=== PATIENT | female | born 1965 | race Caucasian/White ===

== ENCOUNTER 2022-09-24 | Outpatient (REF) | payer OTHER, SELFPAY | END 2022-09-24 00:01 | disposition home or self-care (01) | LOC: HO.LNP | PROVIDERS: Visit Provider Physician Assistant | DX: J02.8 Acute pharyngitis due to other specified organisms (principal) | CPT/HCPCS: 87070 ==

== ENCOUNTER 2024-09-02 08:03 | Outpatient (REF) | payer OTHER, SELFPAY ==
--- NOTE | ~2024-09-02 | MM_ITS ---
EXAMINATION: DXA BONE DENSITY AXIAL HISTORY: Estrogen deficiency TECHNIQUE: [email or web address] Dual energy absorptiometry (DEXA) of the lumbar spine, total left hip, and femoral neck was performed. COMPARISON: There are no prior studies for comparison. FINDINGS: The bone mineral density of the lumbar spine is 1.200 with a T-score of 0.2, and a Z-score of 0.2. The bone mineral density of the left total hip is 0.826 with a T-score of -1.4, and a Z-score of -1.3. The bone mineral density of the left femoral neck is 0.781 with a T-score of -1.8, and a Z-score of -1.4. FRACTURE RISK: The FRAX index suggests a risk of major osteoporotic fracture of 8.1%, and of hip fracture 0.9%. MM/XR DEXA axial skeleton IMPRESSION: Based on bone mineral density, and according to World Health Organization (WHO) criteria, the diagnosis is consistent with osteopenia. All bone density values are in grams per centimeter squared (g/cm2). Statistically, 68% of repeat scans fall within 1 SD (+/- 0.010 g/cm2 for AP spine L1-L4) and 1 SD (+/- 0.012 g/cm2 for femur total) FRAX is a trademark of the [employer] [place] [employer] Metabolic [employer] Disease, a World Health Organization (WHO) Collaborating Center. Electronically signed by: Neeraj Calles MD 09/02/2024 09:33 AM EST
--- OUTSIDE RECORDS SUMMARY | 2024-09-02 08:05 | XMS_ITS | Continuity of Care Document ---
Author Organization [facility] [place] ter Address [address] [place] [address] Phone Care Team Providers Care Agile Scrum Coach Name Role Phone Casimiro Callaway MD Unavailable Unavailable Allergies, Adverse Reactions, Alerts Substance Reaction Status Criticality OXYCODONE HCL Active No Information acetaminophen Active No Information HYDROCODONE BITARTRATE Active No In formation acetaminophen Active No Information HYDROMORPHONE HCL Active No Informa tion codeine Active No Information WARNIN allergy(ies) could not be collected because the type is not supported. Please contact the source practice for further details. Problems Condition Type Effective Dates (start - stop) Clini eva Status Comments No Known Problems Procedures Procedure Date New Pt Complete Advance Directives Directive Yes / No Effective Date File Name No Information Encounters Encounter Description Practice Location Reason(s) For Visit Diagnoses Date Provider Providers Copied [facility] [place], [id number], tel:[phone] [place] pain (chief complaint) Age-related nuclear cataract, bilateralDry eye syndrome of bilateral lacrimal glands Wilfred Kirkpatrick. [address] [place] [address], [id number], [place]. tel:[phone] Referring Provider: Casimiro Callaway, [address] [place] [address], [id number] . tel:[phone] [facility], [address] , [place], [place], [id number], [place] tel:[phone] [place] Myopia, bilateral Mar-0 2-201 8 No Information Family History Family Member Type Diagnosis Age At Onset No Information Payers Payer name Insurance type Covered democrat ID Authorjuancarlosa tibuck(s) [facility] [id number] Social History Type Description Quantity Date Captured Comments Alcohol Use Details No Caffeine Use Details coffee Tobacco Use Status Current non-smoker 20 Smoking Status Never smoker Non-Smoking Tobacco Use Details : No Details Available : No Details Available Sex Female Chief Complaint And Reason For Visit From encounter dated '02/16/2020 09:00'. pain (chief complaint) Reason For Referral Reason For Referral No Information History Of Present Illness Encounter Date Complaint History Of Prese nt Illness pain The 54 year old female presents for evaluation of pain in the right eye. It started about 3 day(s) ago. The symptom is occasional. The condition is described as aching. PT vision stable, Blood pressure 124/82, no drops Functional Status Date Functional Assessmen t No Information Instructions Date Instruction Additional Infor jasmin Impression/Plan - Di scussed diagnosis in detail with patient. Will continue to observe condition and or symptoms. Patient instructed to use artificial tears as needed. Patient instructed to apply warm compresses. Related to Dry eye syndrome of bilateral lacrimal glands Impression/Plan - Di scussed diagnosis in detail with patient. Will continue to observe condition and or symptoms. Patient instructed to call if condition gets worse. Call if [facility] worsens. No treatment is required at this time. Related to Age-related nuclear cataract, bilateral Follow up - OCT- PACHY- REF DFE Assessments Type Assessment Date assessment Age-related nuclear cataract, bi lateral impression Age-related nuclear cataract, bi lateral: H25.13 assessment Dry eye syndrome of bilateral la crimal glands impression Dry eye syndrome of bilateral la crimal glands: H04.123 Charlie-29-2020 Patient Care Teams Name Effective Dates (start - stop) Status Members No Information
--- OUTSIDE RECORDS SUMMARY | 2024-09-02 08:05 | XMS_ITS | Data Portability ---
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 MODERATE MUST MEET 2 OUT OF 3 ELEMENTS: PROBLEMS, DATA OR RISK ELEMENT 1: PROBLEMS ADDRESSED 1 OR MORE CHRONIC ILLNESS WITH EXACERBATION OR 2 OR MORE STABLE CHRONIC ILLNESSES OR 1 UNDIAGNOSED NEW PROBLEM OR 1 ACUTE ILLNESS W/SYMPTOMS OR 1 ACUTE COMPLICATED INJURY ELEMENT 2: DATA MUST MEET 1 OF 3 CATEGORIES CATEGORY 1: REVIEW OF PRIOR EXTERNAL NOTES, REVIEW OF RESULTS, ORDERING OF EACH TEST, ASSESSMENT REQUIRING INDEPENDENT HISTORIAN OR CATEGORY 2: INDEPENDENT INTERPRETATION OF TESTS BY ANOTHER PHYSICIAN OR SPECIALIST OR CATEGORY 3: DISCUSSION OF MGT OR TEST INTERPRETATION W/EXTERNAL PHYSICIAN OR SPECIALIST ELEMENT 3: RISK RISK OF COMPLICATIONS AND/OR MORBIDITY OR MORTALITY OF PATIENT MANAGEMENT PROVIDER MUST THOROUGHLY DOCUMENT EACH ELEMENT THAT IS COVERED Not available 01/10/2023 16:39:37 09/22/2023 09/22/2023 [id number] [place] [id number] (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 MUST MEET 2 OUT OF 3 ELEMENTS: PROBLEMS, DATA OR RISK ELEMENT 1: PROBLEMS ADDRESSED 1 OR MORE CHRONIC ILLNESS WITH EXACERBATION OR 2 OR MORE STABLE CHRONIC ILLNESSES OR 1 UNDIAGNOSED NEW PROBLEM OR 1 ACUTE ILLNESS W/SYMPTOMS OR 1 ACUTE COMPLICATED INJURY ELEMENT 2: DATA MUST MEET 1 OF 3 CATEGORIES CATEGORY 1: REVIEW OF PRIOR EXTERNAL NOTES, REVIEW OF RESULTS, ORDERING OF EACH TEST, ASSESSMENT REQUIRING INDEPENDENT HISTORIAN OR CATEGORY 2: INDEPENDENT INTERPRETATION OF TESTS BY ANOTHER PHYSICIAN OR SPECIALIST OR CATEGORY 3: DISCUSSION OF MGT OR TEST INTERPRETATION W/EXTERNAL PHYSICIAN OR SPECIALIST ELEMENT 3: RISK RISK OF COMPLICATIONS AND/OR MORBIDITY OR MORTALITY OF PATIENT MANAGEMENT PROVIDER MUST THOROUGHLY DOCUMENT EACH ELEMENT THAT IS COVERED Not available 09/22/2023 16:40:41 03/03/2024 03/03/2024 [id number] [place] [id number] (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 MUST MEET 2 OUT OF 3 ELEMENTS: PROBLEMS, DATA OR RISK ELEMENT 1: PROBLEMS ADDRESSED 1 OR MORE CHRONIC ILLNESS WITH EXACERBATION OR 2 OR MORE STABLE CHRONIC ILLNESSES OR 1 UNDIAGNOSED NEW PROBLEM OR 1 ACUTE ILLNESS W/SYMPTOMS OR 1 ACUTE COMPLICATED INJURY ELEMENT 2: DATA MUST MEET 1 OF 3 CATEGORIES CATEGORY 1: REVIEW OF PRIOR EXTERNAL NOTES, REVIEW OF RESULTS, ORDERING OF EACH TEST, ASSESSMENT REQUIRING INDEPENDENT HISTORIAN OR CATEGORY 2: INDEPENDENT INTERPRETATION OF TESTS BY ANOTHER PHYSICIAN OR SPECIALIST OR CATEGORY 3: DISCUSSION OF MGT OR TEST INTERPRETATION W/EXTERNAL PHYSICIAN OR SPECIALIST ELEMENT 3: RISK RISK OF COMPLICATIONS AND/OR MORBIDITY OR MORTALITY OF PATIENT MANAGEMENT PROVIDER MUST THOROUGHLY DOCUMENT EACH ELEMENT THAT IS COVERED Not available 03/03/2024 11:51:19 Plan of Treatment Reminders Order Date Submit Date Provider Last Modified By Organization Details Last Modified Time Details Appointments ANNUAL EXAM 2024 12:00P M DR TORRES Not available Not available Not available Lab CMP, serum or plasma 2022 024 [facility] ([facility]), [address] [place] [address], [id number], 09/05/2023 16:27:20 lipid panel, blood 2022 024 [facility] ([facility]patient), [address] [place] [address], [id number], 08/23/2023 14:05:31 iron + TIBC + ferritin, serum 2023 024 [facility] (Outpatient), [address] [place] [address], [id number], 08/20/2023 16:31:05 vitamin B12 + folate, serum or blood 2023 024 [facility]), [address] [place] [address], [address], 08/23/2023 14:10:49 vitamin D, 25-hydrox y, total, serum 2023 024 [facility] (Outpatient), [address] [place], [address], 08/20/2023 16:31:05 CBC 2023 024 [facility] ([facility]), [address] [place], [address], 09/05/2023 15:52:48 TSH + free T4, serum 2023 024 [facility] [address] [place] [address], [id number], 08/23/2023 14:00:13 H pylori igm+igg+i ga Ab, serum 2022 023 [facility], [address] [place] [address], [address], 11/20/2022 15:05:22 Referral gastroent erologist referral 2023 024 joseph Cabral MD, [address] [place] [address], [address], 08/25/2023 08:56:29 orthopedi c surgeon referral 2022 023 joseph Klein MD, [address] [place] [address], [address], 01/17/2023 08:15:45 orthopedi c physical therapist referral 2022 023 joseph [facility], [address] [place] [address], [address], 01/20/2023 08:11:28 Procedures None recorded. Surgeries None recorded. Imaging NM, hepatobil iary scan, w/ CCK - chronic RUQ abdominal pain with neg US/CT/col onoscopy 2023 024 [email or web address] Not available 03/05/2024 08:53:33 MAMMO, screening , digital, bilateral 2023 024 hrubner Not available 09/03/2023 10:07:23 electroca rdiogram, routine ECG, 12 leads min 2022 023 LUZ MARIA Not available 11/21/2022 12:43:53 RF, upper gastroint estinal tract, w/ contrast PO 2022 023 hrubner Not available 11/27/2022 08:22:54 Medication Orders amoxicill in 875 mg-potass ium clavulana te 125 mg tablet 2023 024 LUZ MARIA [facility], [address] [place], [address], 03/03/2024 11:29:24 famotidin e 40 mg tablet 2022 023 [facility], [address] [place], [address], 01/10/2023 15:46:56 Patient TargetsNo targets recorded. Patient Instructions Encounter Date Encounter Id Patient Instructions Last Modified By Organization Details Last Modified Time 01/10/2023 [id number] gastroesophageal reflux disease (GERD): care instructions Not available 01/10/2023 16:41:28 08/20/2023 [id number] gastroesophageal reflux disease (GERD): care instructions Not available 08/20/2023 16:29:36 09/22/2023 [id number] abdominal pain: care instructions Not available 09/22/2023 16:41:38 Reason for Referral Orthopedic Surgeon Referral for Nontraumatic complete rupture of rotator cuff of right shoulder Referring Physician: Ced Torres, Internal Medicine, Encounter Date: 01/10/2023 Referring Physician: Ced chun, Internal Medicine, Encounter Date: 01/10/2023 [employer] 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 [email or web address] Not Available 11/22 09:50:47 12/21/19 23 12/19/2022 XR, shoul deisy, 2 or more view No observ ation record ed. [facility] [address], [place], [address], 12/20/2022 09:20:53 01/05/20 23 01/03/2023 MRI, shoul deisy, w/o contr ast No observ ation record ed. [facility] [address] [place] [address] , [place] Ortiz, [address], 01/06/2023 09:14:53 01/09/20 23 01/08/2023 RF, upper gastr ointe miesha l tract , w/ contr ast PO No observ ation record ed. [facility] [address] [place] [address], [address], 01/08/2023 15:33:56 03/12/20 23 03/12/2023 XR, chest , 2 view No observ ation record ed. [email or web address] [facility] [address] [facility] [address], [place], [address], 03/13/2023 15:44:32 10/29/19 24 10/28/2023 MAMMO , scree lance, digit al, bilat eral No observ ation record ed. [address], [place], [address], 10/29/2023 17:04:04 03/15/20 24 03/15/2024 NM, hepat obili yoko scan, w/ CCK No observ ation record ed. [address], [place], [address], 03/17/2024 12:08:09 03/24/20 24 03/15/2024 home sleep study No observ [facility]ion [facility] ed. [facility] [address] [facility], [place], [address], 03/26/2024 11:29:22 06/04/20 24 06/04/2024 MRI, abdom en, w/ contr ast No observ ation record ed. [facility] Not Available 2023 15:27:01 Result Notes None recorded. Problems Name Problem SNOMED Code Status Onset Date Resolution Date Notes Provider Name and Address Organization Details Recorded Time Hypertens judy disorder 48553106 Active 2020 Not Available [facility] 4 01:54:38 Anxiety 24532513 Active 2020 Not Available [facility] 4 01:54:38 Gastroeso phageal reflux disease 014530665 Active 2020 Not Available [facility] 4 01:54:38 History of Schatzkis ring 127235958281 54132 Active 2020 Not Available [facility] 4 01:54:38 Gastritis 2501219 Active 2021 Not Available [facility] 4 01:54:38 Nausea 959006506 Active 2021 Not Available [facility] 4 01:54:38 Right upper quadrant pain 297098750 Active 2021 Not Available [facility] 4 01:54:38 Impacted cerumen 14297532 Active 2022 Not Available [facility] 4 01:54:38 Sore throat 136831036 Active 2022 Not Available [facility] 4 01:54:38 Degenerat ion of lumbar intervert ebral disc 55952358 Active 2022 Not Available [facility] 4 01:54:38 Atypical chest pain 941946984 Active 2022 Not Available [facility] 4 01:54:38 Diarrhea 13882148 Active 2022 Not Available [facility] 4 01:54:38 Pain of right shoulder joint 959281557833 92338 Active 2022 Not Available [facility] 4 01:54:38 Calcific tendiniti s of right shoulder 375065793593 107 Active 2022 Not Available [facility] 4 01:54:38 Supraspin atus tear 831556099 Active 2022 Not Available [facility] 4 01:54:38 Nontrauma tic complete rupture of rotator cuff of right shoulder 067188457745 9100 Active 2022 Not Available [facility] 4 01:54:38 Cough 59966189 Active 2022 Not Available [facility] 4 01:54:38 Fatigue 49910493 Active 2023 Not Available [facility] 4 01:54:38 Daytime somnolenc e 153702958962 Active 2023 Not Available [facility] 4 01:54:38 Left lower quadrant pain 448635010 Active 2023 Ced Torres DO [address] [place] [address], [address], [facility] 4 16:40:57 Colitis 24502898 Active 2023 JEN SEARS [address] [place] [address], [address], [facility] 4 09:30:27 Sleep apnea 95731076 Active 2023 JEN SEARS [address] [place] [address], [address], [facility] 4 11:30:13 Alkaline phosphata se above reference range 311725044 Active 2023 Ced Torres DO [address] [place] [address], [address], [facility] 4 16:07:56 Hyperglyc emia 25793260 Active 2023 Ced Torres DO [address] [place] [address], [address], [facility] 4 16:08:48 Cholelith iasis without obstructi on 01298209 Active 2023 JEN SEARS [address] [place], [address], [facility] 14:01:36 Problem Notes None recorded. Procedures Surgical History Date Name Laterality Status Provider Name and Address Organization Details Recorded Time 10/12/19 Cerumen Removal completed JEN SEARS [address] [place], [address], [facility] 10/14/2022 11:27:13 05/21/20 Most [facility] 09:16:37 04/20/20 Date of Last Pap Smear completed [facility] 10/10/2020 09:16:23 07/21/19 Partial Hysterectomy completed [facility] 10/10/2020 09:15:57 Imaging Results Imaging Date Name Status LastModified by Organization Details LastModified Time 11/21/2022 electrocardiogram, routine ECG, 12 leads min completed [email or web address] Information not available 11/22/2022 09:50:47 12/19/2022 XR, shoulder, 2 or more view completed [facility] [address] [place], [address], 12/20/2022 09:20:53 01/03/2023 MRI, shoulder, w/o contrast completed [facility] [address] [place] [address] , [place], [address], 01/06/2023 09:14:53 01/08/2023 RF, upper gastrointestinal tract, w/ contrast PO completed [facility] [address], [place], [address], 01/08/2023 15:33:56 03/12/2023 XR, chest, 2 view completed [facility] [address], [place], [address], 03/13/2023 15:44:32 10/28/2023 MAMMO, screening, digital, bilateral completed [email or web address] [address], [address], 10/29/2023 17:04:04 03/15/2024 NM, hepatobiliary scan, w/ CCK completed [email or web address] [address], [address], 03/17/2024 12:08:09 03/15/2024 home sleep study completed [address], [address], 03/26/2024 11:29:22 06/04/2024 MRI, abdomen, w/ contrast completed [facility] Information not available 06/04/2024 15:27:01 Procedure Notes None recorded. Medical Equipment None Reported. Allergies Allergen ID Allergen Name Allergen Category Reaction Reaction Severity Criticality Documentation Date Start Date Code Code System Note Provider Name and Address Organization Details Recorded Time 4358 morphine medicatio n Not available Not available Not available 10/09/2020 7052 RxNorm Ced Torres, DO [address] [place], [address], [facility] 15:51:27 4359 Substance with sulfonami de structure and antibacte rial mechanism of action (substanc e) medicatio n Not available Not available Not available 10/09/2020 32248 8003 SNOMED Ced Torres, DO [address] [place], [address], [facility] 15:51:33 4360 acetamino phen / hydrocodo ne medicatio n Not available Not available Not available 10/09/2020 34309 2 RxNorm Ced Torres, DO [address] [place], [address], [facility] 15:51:56 4361 acetamino phen / oxycodone medicatio n Not available Not available Not available 10/09/2020 43998 3 RxNorm Ced Torres, DO [address] [place], [address], [facility] 1 15:52:06 4362 naproxen medicatio n Not available Not available Not available 10/09/2020 7258 RxNorm Ced Torres, DO [address] [place], [address], [facility] 1 15:52:14 4363 Soma medicatio n Not available Not available Not available 10/09/2020 38821 2 RxNorm Ced Torres, DO [address] [place], [address], [facility] 1 15:52:22 4364 hydrochlo rothiazid e medicatio n Not available Not available Not available 10/09/2020 5487 RxNorm Ced Torres, DO [address] [place], [address], [facility] 1 15:52:39 4365 Dilaudid medicatio n Not available Not available Not available 10/09/2020 30132 3 RxNorm Ced Torres, DO [address] [place], [address], [facility] 1 15:55:07 8258 Augmentin medicatio n Not available Not available Not available 03/03/2024 12837 2 RxNorm Clemente Wray null, [facility] 4 11:28:44 8259 Flagyl medicatio n Not available Not available Not available 03/03/202416832 6 RxNorm Clemente Maganain null, [facility] 4 11:28:52 8260 Cipro medicatio n Not available Not available Not available 03/03/202496288 3 RxNorm Clemente Wray null, [facility] 11:28:57 Medications Name Sig Start Date Stop Date Status Note LastModified by Organization Details LastModified Time clonidine HCl 0.1 mg tablet TAKE 1 TABLET BY MOUTH EVERY DAY NEEDED 2023 active Not Available Not Available Not Avai lable prednisone 10 mg tablet TAKE 4 TABLETS BY MOUTH DAILY FOR 3 DAYS, 3 TABS FOR 3 DAYS, 2 TABS FOR 3 DAYS, 1 TAB FOR 3 DAYS 11/20 completed Not Available Not Available Not Available doxycycline hyclate 100 mg capsule Take 1 capsule twice a day by oral route for 7 days. 06/04 completed Not Available Not Available Not Available azithromyci n 250 mg tablet TAKE 2 TABLETS BY MOUTH TODAY, THEN TAKE 1 TABLET DAILY FOR 4 DAYS DIRECTED active Not Available Not Available No t Available benzonatate 200 mg capsule TAKE 1 CAPSULE BY MOUTH THREE TIMES A DAY FOR 2 WEEKS active Not Available Not Available No t Available sucralfate 100 mg/mL oral suspension TAKE 10 ML (1 G TOTAL) BY MOUTH 4 (FOUR) TIMES A DAY WITH MEALS AND NIGHTLY. 11/20 completed Not Available Not Available Not Available sucralfate 1 gram tablet TAKE 1 TABLET BY MOUTH FOUR TIMES A DAY NEEDED 2023 active Not Available Not Available Not Avai lable ondansetron HCl 4 mg tablet TAKE 1 TABLET BY MOUTH EVERY 6 TO 8 HOURS NEEDED FOR NAUSEA DIRECTED 06/04 completed Not Available Not Available Not Available famotidine 40 mg tablet TAKE 1 TABLET BY MOUTH TWICE A DAY active Not Available Not Available No t Available metronidazo le 500 mg tablet TAKE 1 TABLET BY MOUTH THREE TIMES A DAY FOR 14 DAYS 03/03 completed Not Available Not Available Not Available ciprofloxac in 500 mg tablet TAKE 1 TABLET BY MOUTH TWICE A DAY FOR 14 DAYS 03/03 completed Not Available Not Available Not Available tramadol 50 mg tablet TAKE 1 TABLET BY MOUTH EVERY 6 HOURS NEEDED FOR 7 DAYS 01/10 completed Not Available Not Available Not Available ondansetron 8 mg disintegrat ing tablet PLACE 1 TABLET TWICE A DAY BY TRANSLING UAL ROUTE FOR 14 DAYS active Not Available Not Available No t Available ketorolac 10 mg tablet TAKE 1 TABLET BY MOUTH EVERY 6 HOURS NEEDED FOR PAIN active Not Available Not Available No t Available lorazepam 0.5 mg tablet TAKE 2 TABLETS BY MOUTH EVERY DAY NEEDED 2024 active Not Available Not Available Not Avai lable aspirin 325 mg tablet,lisandra yed release TAKE 1 TABLET BY MOUTH EVERY DAY FOR 28 DAYS STARTING POST OPERATIVE DAY 1 DIRECTED 06/04 completed Not Available Not Available Not Available pantoprazol e 40 mg tablet,lisandra yed release TAKE 1 TABLET BY MOUTH EVERY DAY active Not Available Not Available No t Available omeprazole 20 mg capsule,del ayed release Take 1 capsule twice a day by oral route. active OTC Not Available Not Available No t Available metoprolol succinate ER 25 mg tablet,exte nded release 24 hr TAKE 1 TABLET BY MOUTH EVERY DAY 2024 active Not Available Not Available Not Avai lable lorazepam 1 mg tablet TAKE 1 TABLET BY MOUTH EVERY DAY NEEDED FOR ANXIETY 09/21 completed Not Available Not Available Not Available methylpredn isolone 4 mg tablets in a dose pack TAKE 6 TABLETS ON DAY 1 DIRECTED ON PACKAGE AND DECREASE BY 1 TAB EACH DAY FOR A TOTAL OF 6 DAYS 09/21 completed Not Available Not Available Not Available albuterol sulfate HFA 90 mcg/actuati on aerosol inhaler INHALE 2 PUFFS INTO THE LUNGS EVERY 4 HOURS FOR 30 DAYS 09/21 completed Not Available Not Available Not Available ondansetron 4 mg disintegrat ing tablet TAKE 1 TABLET BY MOUTH EVERY 8 HOURS NEEDED FOR NAUSEA 03/03 completed Not Available Not Available Not Available fluticasone propionate 50 mcg/actuati on nasal spray,suspe nsion SPRAY 1 SPRAY IN EACH NOSTRIL TWICE A DAY active Not Available Not Available No t Available doxycycline hyclate 100 mg tablet Take 1 tablet twice a day by oral route for 10 days. 03/20 completed Not Available Not Available Not Available dicyclomine 10 mg capsule Take 1 capsule 3 times a day by oral route as needed for 14 days. 10/11 completed Not Available Not Available Not Available amoxicillin 875 mg-potassiu m clavulanate 125 mg tablet TAKE 1 TABLET BY MOUTH EVERY 12 HOURS FOR 10 DAYS 03/03 completed Not Available Not Available Not Available Vitamin D active Not Available Not Gisela ilable Not Available metoprolol succinate ER 25 mg capsule sprinkle, ext. release 24 hr Take 1 capsule every day by oral route. 06/04 completed Not Available Not Available Not Available COVID-19 test specimen collection USE 1 KIT TODAY DIRECTED 06/04 completed Not Available Not Available Not Available Vitals Date Recorded Body height Body mass index (BMI) Body weight Heart rate Oxygen saturation Oxygen saturation in Arterial blood by Pulse oximetry Systolic blood pressure Diastolic blood pressure Provider Name and Address Organization Details Last Updated DateTime 3 163.83 cm 36.6 kg/m2 11167.0 3 g 67 /min 98 % 98 % 118 mm[Hg] 70 mm[Hg] Keisha Bin [facility] 3 14:42:37 Date Recorded Body height Body mass index (BMI) Body weight Heart rate Oxygen saturation Oxygen saturation in Arterial blood by Pulse oximetry Systolic blood pressure Diastolic blood pressure Provider Name and Address Organization Details Last Updated DateTime 3 163.83 cm 37 kg/m2 97358.7 3 g 70 /min 95 % 95 % 142 mm[Hg] 80 mm[Hg] Ced Torres, DO [address] [place], [address], [facility] 3 15:47:43 Date Recorded Body height Body mass index (BMI) Body weight Heart rate Oxygen saturation Oxygen saturation in Arterial blood by Pulse oximetry Systolic blood pressure Diastolic blood pressure Provider Name and Address Organization Details Last Updated DateTime 4 163.83 cm 38 kg/m2 459534. 28 g 78 /min 97 % 97 % 130 mm[Hg] 78 mm[Hg] Lauren Leahy [facility] 4 15:55:38 Date Recorded Body height Body mass index (BMI) Body weight Heart rate Oxygen saturation Oxygen saturation in Arterial blood by Pulse oximetry Systolic blood pressure Diastolic blood pressure Provider Name and Address Organization Details Last Updated DateTime 4 163.83 cm 38.1 kg/m2 028331. 08 g 69 /min 99 % 99 % 122 mm[Hg] 88 mm[Hg] Ced Torres, DO [address] [place], [address], [facility] 4 16:05:32 Date Recorded Body height Body mass index (BMI) Body weight Heart rate Oxygen saturation Oxygen saturation in Arterial blood by Pulse oximetry Systolic blood pressure Diastolic blood pressure Provider Name and Address Organization Details Last Updated DateTime 4 163.83 cm 37.2 kg/m2 84644.3 2 g 72 /min 99 % 99 % 128 mm[Hg] 74 mm[Hg] Clemente Kamala [facility] 4 11:32:04 Social History Question Answer Notes LastModified by Index Details LastModified Time Tobacco Smoking Status Never Smoker Ced Torres, DO [address] [place], [address], [facility] 10/09/2020 15:51:09 What Is Your Level Of Alcohol Consumption? None Information not available 10/10/2020 What Is Your Level Of Caffeine Consumption? Occasional Information not available 10/10/2020 What Was The Date Of Your Most Recent Tobacco Screening? 03/03/2024 [email or web address] Information not available 03/03/2024 Do You Or Have You Ever Used Any Other Forms Of Tobacco Or Nicotine? No Information not available 01/10/2023 Sex: Unknown Functional Status Question Answer Note LastModified by Index Details LastModified Time What is your exercise level? Occasional Information not available 10/10/2020 Mental Status None recorded. Family History Relationship Description Onset Age of this Age Resolved Age Notes LastModified by Organization Details LastModified Time Maternal Grandmother Arthritis tbalicki Not available 09:12:47 Maternal Grandfather Arthritis tbalicki Not available 09:12:47 Paternal Grandmother Arthritis tbalicki Not available 09:12:47 Paternal Grandfather Arthritis tbalicki Not available 09:12:47 Paternal Grandfather Heart disease tbalicki Not available 2020 09:13:50 Paternal Grandfather Hypertensive disorder tbalicki Not available 2020 09:14:57 Father Arthritis tbalicki Not availabl e 10/10/2020 09:12:58 Father Alcoholism [email or web address] Not gisela ilable 10/11/2022 16:12:01 Mother Arthritis tbalicki Not availabl e 10/10/2020 09:13:16 Medical History No medical history recorded. Gynecological History Statement/Question Response Date of Last Pap Smear 04/20/2000 Most Recent Mammogram 05/21/2020 Date of LMP Obstetrics History GPAL:G 0 P 0 0 0 0 Immunizations Vaccine Type Date Status Note Provider Nam e and Address Organization Details Recorded Time COVID-19, mRNA, LNP-S, PF, 30 mcg/0.3 mL dose 10/21/2020 completed Not Available [facility] 4 01:54:38 COVID-19, mRNA, LNP-S, PF, 30 mcg/0.3 mL dose 11/13/2020 completed Not Available [facility] 4 01:54:38 Tdap 02/05/2012 completed Not Available Formerly [facility] 09/06/2023 01:54:39 COVID-19, mRNA, LNP-S, PF, 30 mcg/0.3 mL dose 06/12/2021 completed Not Available Formerly [facility] 4 01:54:39 COVID-19, mRNA, LNP-S, PF, 30 mcg/0.3 mL dose 11/28/2021 completed Not Available [facility] 4 01:54:38 Past Encounters Encounter ID Performer Location Encounter Start Date Encounter Closed Date Diagnosis/Indication Diagnosis SNOMED-CT Code Diagnosis ICD10 Code Diagnosis Note [id number] Ced Torres DO [facility] [address],[place] [address] 10/09/2020 15:40:59 10/09/2020 16:23:31 Hypertensive disorder 05406618 I10 seems to be under control with the metoprolol 25 ER and will remain had lab including cholest and a1c etc also good Gastroesop hageal reflux disease 211107706 K21.00 no evid of barretts esoph on pantoprazo le Acute tear of medial meniscus of left knee [id number] 7134977 S83.242A will need referral [id number] JEN SEARS [facility] [address],[place] [address] 03/02/2021 09:08:14 03/02/2021 10:52:17 Diarrhea 79439880 R19.7 will fu with work note and instructio ns until results come instay hydrated, drink fluids with electrolyt es and start on probiotic Clostridiu m difficile colitis 079559883 A04.72 needs to be tested for C. Diffwill set up at [facility] per patient request [id number] JEN SEARS [facility] [address] [facility] [address] [place] [address] 03/20/2021 15:43:45 03/20/2021 17:05:47 Diarrhea 86270200 R19.7 will set up with GI referral and trial and anti-spasm odic for relief [id number] JEN SEARS [facility] [address],[place] [address] 04/18/2021 09:20:07 04/18/2021 11:40:17 Low back pain 025191815 M54.5 will start on predadvise d not to use both pred and NSAIDs together as it may cause a gastritisc an use APAP or OTC topical gels or icy hot pad Degenerati on of lumbar intervertebral disc 13911830 M51.36 flare up to overuse injury [id number] JEN SEARS [facility] [address],[place] [address] 07/30/2021 09:27:07 07/30/2021 16:07:28 Acute bronchitis 58115388 J20.8 will fu with patient again this week to discuss symptoms [id number] JEN SEARS [facility] [address] [facility] [address] [place] [address] 05/06/2022 11:53:19 05/07/2022 10:46:30 Gastritis 2886331 K29.60 will start on sucralfate History of Schatzkis ring [id number] 7645276 Z87.19 set up with new GI Gastroesop hageal reflux disease 544326403 K21.9 adjusted meds [id number] Ced Torres DO [facility] [address],[place] [address] 06/04/2022 10:04:34 06/04/2022 14:15:57 Active or passive immunization 611424297 Z23 patient advised she is due for flu shot & tdap Adult heal th examination 315177236 Z00.01 MAMMO UTD, GET S IN AUG COLONOSCOP Y GOOD IN 2019 Screening for malignant neoplasm of colon 953593513 Z12.11 HAS HAD ONE ALREADY 2020 CLEAN AND NO POLYPS DOES HAVE SOME DIVERTIC [id number] JEN SEARS [facility] [address],[place] [address] 09/24/2022 14:46:43 09/25/2022 08:49:27 Impacted cerumen 25415834 H61.23 will set up with lavage on Friday Sore throat 965758230 J0 2.8 will set up with standard rapid strep and send out strep test [id number] JEN SEARS [facility] [address],[place] [address] 10/11/2022 16:11:24 10/11/2022 17:02:51 Impacted cerumen 94058878 H61.23 resolved [id number] JEN SEARS [facility] [address],[place] [address] 11/20/2022 14:36:55 11/20/2022 16:25:40 Gastritis 4775727 K29.60 go up to 40 mg of the omeprazole will continue sucralfate 1 G tablet scheduled sucralfate 1 G TIDfamotid ine PRNomepraz ole 40 mg agreed to Upper GI series Atypical chest pain 1025 99190 R07.89 agreed to EKG, low suspicion Diarrhea 70193158 A07.8 not watery, mild [id number] Ced oTrres DO [facility] [address], [place] [address] 01/10/2023 15:24:20 01/10/2023 17:09:23 Nontraumatic complete rupture of rotator cuff of right shoulder 4743134446 975817 M75.[address] klein Gastroesop hageal reflux disease 626144873 K21.00 no evid of barretts esoph on pantoprazo le [id number] Ced Torres [facility] [address],[place] [address] 08/20/2023 15:47:22 08/20/2023 16:51:18 Hypertensive disorder 40220152 I10 seems to be under control with the metoprolol 25 ER and will remain had lab including cholest and a1c etc also good Active or passive immunization 250277878 Z23 patient advised she is due for flu shot & tdap Adult heal th examination 054915389 Z00.00 , GET S IN AUG COLONOSCOP Y GOOD IN 2019 Fatigue 43001944 R53.83 Gastroesop hageal reflux disease 227983548 K21.00 no evid of barretts esoph on omeprazole bid and sulcralfat e [id number] Ced Torres [facility] [address],[place] [address] 09/22/2023 15:59:11 09/22/2023 16:45:43 Hypertensive disorder 27327843 I10 seems to be under control with the metoprolol 25 ER and will remain had lab including cholest and a1c etc also good Left lower quadrant pain 989915123 R10.32 we will cover her for divertic with augmentins he will take if her symptomsar e worse or fever etc and will let us know if she does [id number] [facility] [address],[place] [address] 03/03/2024 11:10:59 03/03/2024 12:08:20 Right upper quadrant pain 553733515 R10.11 relates that she also had pain in ruq after eating ice cream told her to avoid diet Hypertensive disorder 38 143778 I10 seems to be under control with the metoprolol 25 ER and will remain had lab including cholest and a1c etc also good Health Concerns Section Related Observation LastModified by Organization Detai ls LastModified Time None Recorded Concern Status LastModified by Organization Details LastModified Time None Recorded Advance Directives Directive None Recorded Payers Encounter Date Sequence Insurance Name Policy Number Policy Delacruz Covered Member ID Delacruz Member ID Guarantor Name 11/20/2022 1 [facility] [id number] 1 Ladijuan f Scott [id number] Ladiemanuel Scott 01/10/2023 1 [facility] [id number] 1 Ladi Tyler [id number] Ladiemanuel Scott 08/20/2023 1 [facility] [id number] 1 Ladiemanuel Scott [id number] Ladiemanuel Scott 09/22/2023 1 [facility] [id number] 1 Ladiemanuel Scott [id number] Ladiemanuel Scott 03/03/2024 1 [facility] [id number] 1 Ladiemanuel Scott [id number] Ladi Scott Notes Date Note Type Note Provider Name a nd Address Organization Details Recorded Time 3 text/html f/u gastritis? the patient reports that for the past three daysepigastric pain for the past three daysno chest pain, no sob, no cough, no fever, no chills the patient has been using pepcid, omeprazole she is on, start back on sulcralfatethe patient does report that the pain radiates to the left arm no other cardiac symptomslow suspicion for cardiac etiology start with upper GIset up with H. pylori bland diet continuealkaline water JEN SEARS [address] [place] [address], [phone], [facility] 11/20/2022 15:17:00 3 text/html having pain in her right shoulder c/w her shoulder rotator cuff tearis in a signif amount of pain Ced Torres DO [address] [place] [address], [phone], [facility] 01/10/2023 16:42:35 4 text/html Annual WellnessReported bypatient.Diet and Nutrition:healthy diet Fracture Risk:no history of fractures; no recent explained fracture; no sudden unexplained fractures; no previous musculoskeletal injuries Physical Activity:exercises on a regular basis; recent increase in physical activity; good physical condition Additional Lifestyle Factors:no tobacco use; no alcohol intake; stopped drinking alcohol Depression Risk:never feels sad, empty, or tearful; no loss of interest in activities; no significant changes in weight; no sleep disturbances or insomnia; no agitation; no loss of energy; no feelings of worthlessness or guilt; no thoughts of suicide; no history of depression; no history of mood disorders Hearing:no loss of hearing Vision:no vision problems here for her annualrelates having a lot of daytime somnolence , and wgt gain and hair falling out ,and restless sleepalso he gerd has acted up as of saud is also describing chest pain with radiation to the left shoulder Ced Graves DO [place] [address] [place] [address], [phone], [facility] 08/20/2023 16:30:43 4 text/html was in the hospital er for LLQ abd pain suddnly states felt fine prior to this and had no fever no diarrheahad not been constipationhad CT scan and this was read as normal relates it was sore for several days after but faded away now she has some discomfort to palp of this area OF LLQ over sigmoid colon Ced Graves DO [place] [address] [place] [address], [phone], [facility] 09/22/2023 16:44:57 4 text/html had recurrent abdominal pain in ruq was seen in ER had US and CT again and all this was negative relates still having episode of pain ruq Ced Graves DO [place] [address] [place] [address], [phone], [facility] 03/03/2024 11:57:43 OBGyn Episode No OBEpisode recorded.
== END 2024-09-02 08:04 | disposition home or self-care (01) ==
LOC: HO.MAMMO 08:03
PROVIDERS: PCP Internal Medicine; Visit Provider Internal Medicine
DX: Z13.820 Encounter for screening for osteoporosis (principal); R74.8 Abnormal levels of other serum enzymes; M89.9 Disorder of bone, unspecified; E28.39 Other primary ovarian failure
CPT/HCPCS: 77080

== ENCOUNTER → 2024-09-02 08:15 | Outpatient (BNV) | payer OTHER, SELFPAY | PROVIDERS: PCP Internal Medicine; Visit Provider Radiology Diagnostic Radiology | DX: E28.39 Other primary ovarian failure (principal) | CPT/HCPCS: 77080 ==